=== PATIENT | male | born 1975 | race Caucasian/White ===

== ENCOUNTER 2018-06-08 08:15 | Emergency (ER) | payer BC, OTHER | END 2018-06-08 08:55 | disposition home or self-care (01) | LOC: MADERS 08:15 | DX: M10.061 Idiopathic gout, right knee (principal); I10 Essential (primary) hypertension; Z79.899 Other long term (current) drug therapy | CPT/HCPCS: 99283 ==

== ENCOUNTER 2018-12-10 09:31 | Outpatient (CLI) | payer BC ==
--- NOTE | 2018-12-10 11:05 | RAD ---
RADIOGRAPH RIGHT KNEE 4 VIEWS: DATE: 06/08/2018. HISTORY: A 43-year-old male with chronic right knee pain with gout. FINDINGS: Moderate to large suprapatellar joint effusion. Edema in Hoffa's fat pad. No fracture or dislocation. No destructive osseous lesion. Patellofemoral compartment: Small osteophytes. Lateral compartment: Joint space maintained. Tiny osteophytes. Medial compartment: Small osteophytes. Joint space maintained. Mild chondrocalcinosis at medial and lateral compartments. IMPRESSION: 1. Joint effusion. 2. Edema in Hoffa's fat pad. 3. Mild osteoarthrosis. 4. 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 POS: CET
[2018-12-10 11:40] LABS: #Basophils 0.1 thou/uL (0.0-0.2); #Eosinphils 0.1 thou/uL (0.0-0.7); #Monocytes 0.5 thou/uL (0.11-0.59); %Basophils 1.2 % (0.0-1.0); %Eosinophils 2.2 % (0.0-10.0); %Lymphocytes 29.8 % (21.0-51.0); %Monocytes 6.8 % (0.0-10.0); Hemoglobin 14.7 g/dL (14.0-18.0); Mean Corpuscular HGB CONC 33.8 g/dL (32.0-36.0); Mean Corpuscular Hemoglobin 28.6 pg (27.0-31.0); Mean Corpuscular Volume 84.4 fL (78.0-98.0); Mean Platelet Volume 9.1 fL (7.4-10.4); Platelet Count 176 thou/uL (130-400); RBC Distribution Width 13.2 % (11.5-14.5); Red Blood Cell (RBC) Count 5.15 mill/uL (4.70-6.10); White Blood Cell (WBC) Count 6.7 thou/uL (4.8-10.8)
[2018-12-10 11:49] LABS: ALT (SGPT) 40 U/L (8-55); AST (SGOT) 19 U/L (5-34); Albumin 4.3 g/dL (3.5-5.0); Alkaline Phosphatase 65 U/L (40-150); Anion Gap 16 mmol/L (10-20); BUN (Urea Nitrogen) 15 mg/dL (8.9-20.6); Bilirubin, Total 0.5 mg/dL (0.2-1.2); Calc. Creatinine Clearance 0 mL/min (70-130); Calcium 9.8 mg/dL (7.8-10.44); Carbon Dioxide 25 mmol/L (22-29); Chloride 104 mmol/L (98-107); Cholesterol 249 mg/dl (< 200 Desired); Estimated GFR-MDRD 57; Glucose 107 mg/dL (70-105); HDL Cholesterol 31 mg/dL (>60 Neg Risk); Potassium 4.1 mmol/L (3.5-5.1); Protein, Total 7.3 g/dL (6.0-8.3); Sodium 141 mmol/L (136-145); Triglycerides 767 mg/dL (Less than 150)
[2018-12-10 12:04] LABS: Thyroid Stimulating Hormone 1.4635 uIU/mL (0.35-4.94)
[2018-12-10 17:12] LABS: Hemoglobin A1c 5.3 % (4.0-6.0)
== END 2018-12-10 09:32 | disposition home or self-care (01) ==
LOC: MADLABBHPM 09:31
PROVIDERS: ATTEND Family Medicine
DX: Z00.00 Encounter for general adult medical examination without abnormal findings (principal); M25.561 Pain in right knee; M25.461 Effusion, right knee; R60.0 Localized edema; M17.11 Unilateral primary osteoarthritis, right knee; M11.261 Other chondrocalcinosis, right knee
CPT/HCPCS: 36415; 80053; 80061; 82306; 83036; 84443; 85025

== ENCOUNTER 2019-03-12 12:34 | Emergency (ER) | payer BC ==
[~2019-03-12 12:34] MED LIST: Sodium Chloride Irrig Solution 250 ML BOT ONE
[2019-03-12] MEDS ORDERED: Lidocaine 1% 20 ML MDV ONE (13:02)
[2019-03-12] MEDS ORDERED: Bacitracin 1 PK ONE ×2 (13:30→13:35)
== END 2019-03-12 13:38 | disposition home or self-care (01) ==
LOC: MADERS 12:34
DX: S61.217A Laceration without foreign body of left little finger without damage to nail, initial encounter (principal); I10 Essential (primary) hypertension; M10.9 Gout, unspecified; W26.0XXA Contact with knife, initial encounter
CPT/HCPCS: 12001; J2001